=== PATIENT | female | born 1970 | race Caucasian/White ===

== ENCOUNTER → 2016-10-11 | Outpatient (CLI) | payer OTHER ==
[~2016-10-11] VITALS: Ht 175.3 cm; Wt 93.9 kg
[~2016-10-11] MED LIST: GLUCOPHAGE500 MG PO; LORAZEPAM0.5 MG PO; LYRICA50 MG PO; MACRODANTIN50 M1 PO; PERCOCET 10/1 TABLET PO; SYNTHROID200 MCG PO; SYNTHROID25 MCG PO; TRESIBA FL200 UNIT/1 SC; TRULICITY0.75 MG/0. SC
[2016-10-11 10:41] LABS: POINT-OF-CARE METER ID UU13113694
== END | disposition home or self-care (01) ==
LOC: AMB 08:58
PROVIDERS: Urology
PROC: 0TF3XZZ Fragmentation in Right Kidney Pelvis, External Approach (ICD-10-PCS; principal; 2016-10-11)
DX: N20.0 Calculus of kidney (principal); E11.9 Type 2 diabetes mellitus without complications; E03.9 Hypothyroidism, unspecified; E78.5 Hyperlipidemia, unspecified; F17.210 Nicotine dependence, cigarettes, uncomplicated; Z79.4 Long term (current) use of insulin; Z98.1 Arthrodesis status
CPT/HCPCS: 74010; 82948; J1170; J2250; J3010

== ENCOUNTER 2016-12-24 14:50 | Emergency (ER) | payer OTHER ==
[~2016-12-24] VITALS: Ht 172.7 cm; Wt 96.0 kg
[2016-12-24 15:43] LABS: HEMATOCRIT 40.9 % (36.0-46.0); MCH 30.2 PG (29.0-34.0); MCHC 34.2 G/DL (30.0-36.0); MCV 88.1 FL (83-99); MEAN PLAT.VOLUME 10.7 uM^3 (9.5-12.4); PLATELET COUNT 194 K/uL (156-360); RBC DIS.WIDTH-CV 12.6 % (11.8-14.6); RBC DIS.WIDTH-SD 40.7 % (39-53); RED BLOOD COUNT 4.64 M/uL (3.80-5.20); WHITE BLOOD COUNT 4.9 K/uL (4.1-10.2)
[2016-12-24 15:53] LABS: CHLORIDE 100 mEq/L (99-109); POTASSIUM 3.8 mEq/L (3.7-5.4); SODIUM 135 mEq/L (136-147)
[2016-12-24 15:55] LABS: GLUCOSE 155 mg/dL (70-99)
[2016-12-24 15:56] LABS: ANION GAP 7 MEQ/L (2-14)
[2016-12-24 15:59] LABS: GFR ESTIMATE (CALCULATED) 57 mL/min/
[2016-12-24 16:00] LABS: UREA NITROGEN (BUN) 14 mg/dL (9-23)
[2016-12-24 16:07] LABS: QUANTITATIVE HCG 6.8 MIU/ML
[2016-12-24 17:08] LABS: ADD MIUA? YES; BILIRUBIN NEGATIVE; BLOOD SMALL; COLOR AMBER ((YELLOW)); GLUCOSE (STRIP) 50; KETONES NEGATIVE; LEUKOCYTES MODERATE; NITRITE NEGATIVE; PROTEIN (STRIP) 100; SPECIFIC GRAVITY 1.021 (1.000-1.030); UROBILINOGEN 0.2 MG/DL (0.2-1.0)
[2016-12-24 17:35] LABS: EPITHELIAL CELLS 2+ /HPF; MUCUS 1+ /LPF; RED BLOOD CELLS 0-5 /HPF (0-5); WHITE BLOOD CELLS 15-20 /HPF (0-5)
[2016-12-24 17:36] LABS: BACTERIA 2+ /HPF; CASTS NONE SEEN /LPF; CRYSTALS NONE SEEN; UCUL ADDED? YES
[2016-12-24] MEDS ORDERED: PYRIDIUM100 MG PO (17:43)
[2016-12-24] MEDS ORDERED: CIPRO500 MG PO (17:43)
[2016-12-24] MEDS ORDERED: MOTRIN800 MG PO (17:43)
[2016-12-24] MEDS ORDERED: ZOFRAN ODT4 MG PO (17:49)
[2016-12-24 17:57] VITALS: BP 122/72
== END 2016-12-24 17:59 | disposition home or self-care (01) ==
LOC: EME 14:50
DX: N30.01 Acute cystitis with hematuria (principal); F17.200 Nicotine dependence, unspecified, uncomplicated; I10 Essential (primary) hypertension; E78.5 Hyperlipidemia, unspecified; E11.9 Type 2 diabetes mellitus without complications; Z87.442 Personal history of urinary calculi; Z79.4 Long term (current) use of insulin
CPT/HCPCS: 74177; 80048; 81003; 84702; 85027; 87086; 99281; 99284; J1885; J2405; J7030